=== PATIENT | male | born 2005 | race Asian ===

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

== ENCOUNTER 2024-04-06 10:12 | Emergency (ER) | payer OTHER ==
[~2024-04-06] VITALS: Ht 180.3 cm; Wt 100.0 kg
[2024-04-06 10:19] VITALS: BP 146/97; PULSE 85; RESP 16; TEMP 97.9
[2024-04-06] MEDS ORDERED: NYST30OI6 TP (10:38)
== END 2024-04-06 11:03 | disposition home or self-care (01) ==
LOC: EMS 10:14
DX: B35.6 Tinea cruris (principal)
CPT/HCPCS: 99283; Z7502